=== PATIENT | female | born 1930 | race Caucasian/White ===

== ENCOUNTER 2021-04-21 14:59 | Inpatient (IN) ==
[2021-04-22] MEDS ORDERED: Fluticasone Propionate Nasal 50 MCG/SPRAY BOTTLE NS PRN (12:05)
[2021-04-23 05:15] LABS: Basophils % 0.2 %; Eosinophils % 0.2 %; Hematocrit 30.5 % (35.3-44.9); Hemoglobin 9.9 g/dL (11.5-15.4); Immature Granulocytes % 0.7 % (0-4); Lymphocytes # 3.8 K/mcL (0.6-4.6); Lymphocytes % 31.8 %; Mean Corpuscular HGB Conc 32.5 g/dL (31.6-35.5); Mean Corpuscular Hemoglobin 30.4 pg (28.0-33.3); Mean Corpuscular Volume 93.6 fL (83.0-100.0); Mean Platelet Volume 8.8 fL (9.4-12.4); Monocytes # 1.1 K/mcL (0.0-1.3); Monocytes % 9.1 %; Neutrophils # 6.9 K/mcL (1.6-8.9); Platelet Count 371 K/mcL (140-400); Red Blood Count 3.26 M/mcL (3.82-4.97); Red Cell Distribution Width 14.4 % (11.5-14.5); White Blood Count 11.9 K/mcL (4.3-11.1)
[2021-04-23 05:30] LABS: BUN/Creatinine Ratio 35 (6-26); Blood Urea Nitrogen 36 mg/dL (8-23); Calcium 8.8 mg/dL (8.6-10.3); Carbon Dioxide 28 mEq/L (23-29); Chloride 97 mEq/L (98-107); Glucose 96 mg/dL (70-105); Osmolality,Calculated 280 (280-300); Potassium 4.2 mEq/L (3.5-5.1); Sodium 131 mEq/L (136-145); eGFR For African Americans > 60 (> 60); eGFR For Non-African Americans 51 (> 60)
[2021-04-23 05:42] LABS: Magnesium 2.1 mg/dL (1.6-2.6)
[2021-04-23 06:49] VITALS: BP 146/74
[2021-04-23] MEDS ORDERED: *HR* Enoxaparin 40 MG/0.4 ML SYRINGE SQ SCH (07:00)
[2021-04-23 08:22] LABS: Ferritin 46 ng/mL (10-120)
[2021-04-23] MEDS ORDERED: predniSONE 20 MG TABLET PO SCH (09:00)
[2021-04-23] MEDS ORDERED: amLODIPine 5 MG TABLET PO SCH (09:00)
[2021-04-23] MEDS ORDERED: Furosemide 20 MG TABLET PO SCH (09:00)
[2021-04-23] MEDS ORDERED: Isosorbide MONOnitrate (24 HR) 30 MG TAB.ER.24H PO SCH (09:00)
[2021-04-23] MEDS ORDERED: Azithromycin 250 MG TABLET PO SCH (09:00)
[2021-04-23] MEDS ORDERED: lisinopriL 10 MG TABLET PO SCH (09:00)
[2021-04-23 09:05] LABS: C-Reactive Protein < 5 mg/L (Less than 10)
== END 2021-04-23 07:28 | disposition short-term general hospital (02) | DRG 310 ==
LOC: INPGRE 04-22 14:41
PROVIDERS: ADMIT Family Medicine; ATTEND Family Medicine

== ENCOUNTER 2021-04-28 11:53 | Inpatient (IN) ==
[2021-04-28] MEDS ORDERED: Fluticasone Propionate Nasal 50 MCG/SPRAY BOTTLE NS PRN (17:40)
[2021-04-29] MEDS: Acetaminophen 325 MG TABLET PO PRN ×2 (02:30→20:25)
[2021-04-29] MEDS: *HR* Enoxaparin 40 MG/0.4 ML SYRINGE SQ SCH (04:55)
[2021-04-29 06:20] LABS: Basophils % 0.2 %; Eosinophils # 0.1 K/mcL (0.0-0.6); Eosinophils % 0.5 %; Hematocrit 30.1 % (35.3-44.9); Immature Granulocytes % 0.9 % (0-4); Lymphocytes # 4.6 K/mcL (0.6-4.6); Lymphocytes % 35.8 %; Mean Corpuscular HGB Conc 33.2 g/dL (31.6-35.5); Mean Corpuscular Hemoglobin 30.9 pg (28.0-33.3); Mean Corpuscular Volume 92.9 fL (83.0-100.0); Mean Platelet Volume 8.7 fL (9.4-12.4); Monocytes # 1.2 K/mcL (0.0-1.3); Monocytes % 9.4 %; Neutrophils # 6.9 K/mcL (1.6-8.9); Platelet Count 297 K/mcL (140-400); Red Blood Count 3.24 M/mcL (3.82-4.97); Red Cell Distribution Width 14.4 % (11.5-14.5); Segmented Neutrophils % 53.2 %; White Blood Count 12.9 K/mcL (4.3-11.1)
[2021-04-29 06:44] LABS: Albumin 3.4 g/dL (3.5-5.7); Albumin/Globulin Ratio 1.4 (1.1-2.2); Bilirubin,Total 0.4 mg/dL (0.3-1.0); Calcium 8.7 mg/dL (8.6-10.3); Globulin 2.5 g/dL (2.4-3.5); Magnesium 2.1 mg/dL (1.6-2.6); Potassium 4.1 mEq/L (3.5-5.1); Total Protein 5.9 g/dL (6.4-8.9)
[2021-04-29] MEDS: predniSONE 20 MG TABLET PO SCH (08:59)
[2021-04-29] MEDS: Isosorbide MONOnitrate (24 HR) 30 MG TAB.ER.24H PO SCH (08:59)
[2021-04-29] MEDS: amLODIPine 5 MG TABLET PO SCH (08:59)
[2021-04-29] MEDS: Furosemide 20 MG TABLET PO SCH (08:59)
[2021-04-29] MEDS: lisinopriL 10 MG TABLET PO SCH (08:59)
[2021-04-30] MEDS: *HR* Enoxaparin 40 MG/0.4 ML SYRINGE SQ SCH (05:22)
[2021-04-30] MEDS: Budesonide/Formoterol 160/4.5 1 PUFF INH IH SCH ×2 (08:05→20:37)
[2021-04-30] MEDS: Isosorbide MONOnitrate (24 HR) 30 MG TAB.ER.24H PO SCH (09:29)
[2021-04-30] MEDS: amLODIPine 5 MG TABLET PO SCH (09:29)
[2021-04-30] MEDS: lisinopriL 10 MG TABLET PO SCH (09:29)
[2021-04-30] MEDS: Furosemide 20 MG TABLET PO SCH (09:29)
[2021-04-30] MEDS: predniSONE 20 MG TABLET PO SCH (09:29)
[2021-04-30] MEDS: Acetaminophen 325 MG TABLET PO PRN (21:19)
[2021-05-01] MEDS: *HR* Enoxaparin 40 MG/0.4 ML SYRINGE SQ SCH (04:51)
[2021-05-01] MEDS: Budesonide/Formoterol 160/4.5 1 PUFF INH IH SCH ×2 (06:59→19:56)
[2021-05-01] MEDS: Furosemide 20 MG TABLET PO SCH (09:46)
[2021-05-01] MEDS: lisinopriL 10 MG TABLET PO SCH (09:46)
[2021-05-01] MEDS: amLODIPine 5 MG TABLET PO SCH (09:46)
[2021-05-01] MEDS: Isosorbide MONOnitrate (24 HR) 30 MG TAB.ER.24H PO SCH (09:46)
[2021-05-01] MEDS: Acetaminophen 325 MG TABLET PO PRN (22:00)
[2021-05-02] MEDS: Acetaminophen 325 MG TABLET PO PRN ×3 (06:03→21:46)
[2021-05-02] MEDS: *HR* Enoxaparin 40 MG/0.4 ML SYRINGE SQ SCH (06:03)
[2021-05-02] MEDS: Isosorbide MONOnitrate (24 HR) 30 MG TAB.ER.24H PO SCH (08:19)
[2021-05-02] MEDS: Furosemide 20 MG TABLET PO SCH (08:19)
[2021-05-02] MEDS: amLODIPine 5 MG TABLET PO SCH (08:19)
[2021-05-02] MEDS: lisinopriL 10 MG TABLET PO SCH (08:19)
[2021-05-02] MEDS: Budesonide/Formoterol 160/4.5 1 PUFF INH IH SCH ×2 (11:57→20:12)
[2021-05-03] MEDS: *HR* Enoxaparin 40 MG/0.4 ML SYRINGE SQ SCH (04:55)
[2021-05-03] MEDS: Acetaminophen 325 MG TABLET PO PRN ×2 (04:55→22:05)
[2021-05-03] MEDS: Isosorbide MONOnitrate (24 HR) 30 MG TAB.ER.24H PO SCH (08:46)
[2021-05-03] MEDS: amLODIPine 5 MG TABLET PO SCH (08:46)
[2021-05-03] MEDS: lisinopriL 10 MG TABLET PO SCH (08:46)
[2021-05-03] MEDS: Furosemide 20 MG TABLET PO SCH (08:46)
[2021-05-03] MEDS: Budesonide/Formoterol 160/4.5 1 PUFF INH IH SCH ×2 (08:53→20:11)
[2021-05-04 04:34] LABS: Hematocrit 30.5 % (35.3-44.9); Hemoglobin 9.9 g/dL (11.5-15.4); Mean Corpuscular HGB Conc 32.5 g/dL (31.6-35.5); Mean Corpuscular Hemoglobin 30.7 pg (28.0-33.3); Mean Corpuscular Volume 94.7 fL (83.0-100.0); Mean Platelet Volume 8.5 fL (9.4-12.4); Platelet Count 263 K/mcL (140-400); Red Blood Count 3.22 M/mcL (3.82-4.97); Red Cell Distribution Width 14.6 % (11.5-14.5); White Blood Count 8.9 K/mcL (4.3-11.1)
[2021-05-04] MEDS: *HR* Enoxaparin 40 MG/0.4 ML SYRINGE SQ SCH (04:46)
[2021-05-04 04:53] LABS: Albumin 3.2 g/dL (3.5-5.7); Albumin/Globulin Ratio 1.4 (1.1-2.2); Bilirubin,Total 0.4 mg/dL (0.3-1.0); Calcium 8.7 mg/dL (8.6-10.3); Globulin 2.3 g/dL (2.4-3.5); Potassium 4.7 mEq/L (3.5-5.1); Total Protein 5.5 g/dL (6.4-8.9)
[2021-05-04] MEDS: Budesonide/Formoterol 160/4.5 1 PUFF INH IH SCH ×2 (07:18→20:26)
[2021-05-04] MEDS: amLODIPine 5 MG TABLET PO SCH (08:48)
[2021-05-04] MEDS: lisinopriL 10 MG TABLET PO SCH (08:48)
[2021-05-04] MEDS: Isosorbide MONOnitrate (24 HR) 30 MG TAB.ER.24H PO SCH (08:48)
[2021-05-04] MEDS: Furosemide 20 MG TABLET PO SCH (08:48)
[2021-05-04] MEDS: Acetaminophen 325 MG TABLET PO PRN (21:46)
[2021-05-05] MEDS ORDERED: Psyllium 1 PACKET POWD.PACK PO PRN (02:24)
[2021-05-05] MEDS: *HR* Enoxaparin 40 MG/0.4 ML SYRINGE SQ SCH (05:42)
[2021-05-05] MEDS: Isosorbide MONOnitrate (24 HR) 30 MG TAB.ER.24H PO SCH (07:52)
[2021-05-05] MEDS: Furosemide 20 MG TABLET PO SCH (07:52)
[2021-05-05] MEDS: amLODIPine 5 MG TABLET PO SCH (07:52)
[2021-05-05] MEDS: lisinopriL 10 MG TABLET PO SCH (07:53)
[2021-05-05] MEDS: Budesonide/Formoterol 160/4.5 1 PUFF INH IH SCH ×2 (10:05→19:14)
[2021-05-05] MEDS: Acetaminophen 325 MG TABLET PO PRN (22:33)
[2021-05-06] MEDS: *HR* Enoxaparin 40 MG/0.4 ML SYRINGE SQ SCH (05:55)
[2021-05-06] MEDS: Budesonide/Formoterol 160/4.5 1 PUFF INH IH SCH ×2 (08:11→20:58)
[2021-05-06] MEDS: lisinopriL 10 MG TABLET PO SCH (08:19)
[2021-05-06] MEDS: amLODIPine 5 MG TABLET PO SCH (08:19)
[2021-05-06] MEDS: Isosorbide MONOnitrate (24 HR) 30 MG TAB.ER.24H PO SCH (08:19)
[2021-05-06] MEDS: Furosemide 20 MG TABLET PO SCH (09:52)
[2021-05-06] MEDS: Acetaminophen 325 MG TABLET PO PRN (21:13)
[2021-05-07] MEDS: *HR* Enoxaparin 40 MG/0.4 ML SYRINGE SQ SCH (05:19)
[2021-05-07] MEDS: Furosemide 20 MG TABLET PO SCH (08:44)
[2021-05-07] MEDS: Isosorbide MONOnitrate (24 HR) 30 MG TAB.ER.24H PO SCH (08:44)
[2021-05-07] MEDS: lisinopriL 10 MG TABLET PO SCH (08:45)
[2021-05-07] MEDS: amLODIPine 5 MG TABLET PO SCH (08:45)
[2021-05-07] MEDS: Budesonide/Formoterol 160/4.5 1 PUFF INH IH SCH ×2 (09:08→21:07)
[2021-05-07] MEDS: Acetaminophen 325 MG TABLET PO PRN (20:32)
[2021-05-08] MEDS: *HR* Enoxaparin 40 MG/0.4 ML SYRINGE SQ SCH (05:07)
[2021-05-08] MEDS: Acetaminophen 325 MG TABLET PO PRN (05:08)
[2021-05-08 06:43] VITALS: BP 114/66
[2021-05-08] MEDS: amLODIPine 5 MG TABLET PO SCH (08:16)
[2021-05-08] MEDS: lisinopriL 10 MG TABLET PO SCH (08:16)
[2021-05-08] MEDS: Furosemide 20 MG TABLET PO SCH (08:16)
[2021-05-08] MEDS: Isosorbide MONOnitrate (24 HR) 30 MG TAB.ER.24H PO SCH (08:16)
[2021-05-08] MEDS: Budesonide/Formoterol 160/4.5 1 PUFF INH IH SCH (10:12)
== END 2021-05-08 15:02 | disposition home health service (06) | DRG 178 ==
LOC: INPGRE 15:32
PROVIDERS: ADMIT Family Medicine; ATTEND Family Medicine

== ENCOUNTER 2021-07-29 15:59 | Inpatient (IN) ==
[2021-07-29] MEDS: Budesonide/Formoterol 160/4.5 1 PUFF INH IH SCH (21:15)
[2021-07-29] MEDS: Acetaminophen 325 MG TABLET PO PRN (21:40)
[2021-07-30 06:05] LABS: Basophils # 0.1 K/mcL (0.0-0.2); Basophils % 0.9 %; Eosinophils # 0.4 K/mcL (0.0-0.6); Eosinophils % 4.7 %; Hematocrit 28.1 % (35.3-44.9); Hemoglobin 9.2 g/dL (11.5-15.4); Lymphocytes # 2.1 K/mcL (0.6-4.6); Lymphocytes % 25.5 %; Mean Corpuscular HGB Conc 32.7 g/dL (31.6-35.5); Mean Corpuscular Hemoglobin 29.7 pg (28.0-33.3); Mean Corpuscular Volume 90.6 fL (83.0-100.0); Mean Platelet Volume 9.1 fL (9.4-12.4); Monocytes # 0.6 K/mcL (0.0-1.3); Monocytes % 7.6 %; Neutrophils # 4.9 K/mcL (1.6-8.9); Platelet Count 282 K/mcL (140-400); Red Cell Distribution Width 15.4 % (11.5-14.5); Segmented Neutrophils % 60.3 %; White Blood Count 8.1 K/mcL (4.3-11.1)
[2021-07-30 06:40] LABS: BUN/Creatinine Ratio 16 (6-26); Blood Urea Nitrogen 15 mg/dL (8-23); Calcium 8.5 mg/dL (8.6-10.3); Carbon Dioxide 26 mEq/L (23-29); Chloride 99 mEq/L (98-107); Glucose 91 mg/dL (70-105); Osmolality,Calculated 270 (280-300); Potassium 4.7 mEq/L (3.5-5.1); Sodium 130 mEq/L (136-145); eGFR For African Americans > 60 (> 60); eGFR For Non-African Americans 57 (> 60)
[2021-07-30] MEDS: Isosorbide MONOnitrate (24 HR) 30 MG TAB.ER.24H PO SCH (08:14)
[2021-07-30] MEDS: lisinopriL 10 MG TABLET PO SCH (08:14)
[2021-07-30] MEDS: Aspirin Enteric Coated 81 MG Tablet PO SCH (08:14)
[2021-07-30] MEDS: amLODIPine 5 MG TABLET PO SCH (08:14)
[2021-07-30] MEDS: *HR* Enoxaparin 40 MG/0.4 ML SYRINGE SQ SCH (08:15)
[2021-07-30] MEDS: Budesonide/Formoterol 160/4.5 1 PUFF INH IH SCH ×2 (09:40→19:45)
[2021-07-30] MEDS ORDERED: Lactulose Oral Soln 20 GM/30 ML UDC PO PRN (18:38)
[2021-07-30] MEDS ORDERED: Bisacodyl 10 MG RECTAL SUPPOSITORY RC PRN (18:38)
[2021-07-30] MEDS: Acetaminophen 325 MG TABLET PO PRN (20:59)
[2021-07-30] MEDS: polyethylene glycoL 3350 17 GM POWD.PACK PO SCH (20:59)
[2021-07-30] MEDS: Melatonin 3 MG TABLET PO PRN (20:59)
[2021-07-30] MEDS ORDERED: Sennosides/Docusate Sodium TABLET PO SCH (21:00)
[2021-07-31] MEDS: Acetaminophen 325 MG TABLET PO PRN ×2 (07:09→20:12)
[2021-07-31] MEDS: *HR* Enoxaparin 40 MG/0.4 ML SYRINGE SQ SCH (07:11)
[2021-07-31] MEDS: polyethylene glycoL 3350 17 GM POWD.PACK PO SCH (08:26)
[2021-07-31] MEDS: Aspirin Enteric Coated 81 MG Tablet PO SCH (08:27)
[2021-07-31] MEDS: amLODIPine 5 MG TABLET PO SCH (08:27)
[2021-07-31] MEDS: Isosorbide MONOnitrate (24 HR) 30 MG TAB.ER.24H PO SCH (08:27)
[2021-07-31] MEDS: lisinopriL 10 MG TABLET PO SCH (08:27)
[2021-07-31] MEDS: Budesonide/Formoterol 160/4.5 1 PUFF INH IH SCH ×2 (09:58→20:19)
[2021-07-31] MEDS: Melatonin 3 MG TABLET PO PRN (20:12)
[2021-08-01] MEDS: *HR* Enoxaparin 40 MG/0.4 ML SYRINGE SQ SCH (05:37)
[2021-08-01 06:00] LABS: Basophils % 0.5 %; Eosinophils # 0.4 K/mcL (0.0-0.6); Eosinophils % 4.9 %; Hemoglobin 9.1 g/dL (11.5-15.4); Immature Granulocytes % 0.9 % (0-4); Lymphocytes % 25.8 %; Mean Corpuscular HGB Conc 32.5 g/dL (31.6-35.5); Mean Corpuscular Hemoglobin 30.2 pg (28.0-33.3); Mean Platelet Volume 9.1 fL (9.4-12.4); Monocytes # 0.8 K/mcL (0.0-1.3); Monocytes % 10.7 %; Neutrophils # 4.3 K/mcL (1.6-8.9); Platelet Count 324 K/mcL (140-400); Red Blood Count 3.01 M/mcL (3.82-4.97); Red Cell Distribution Width 15.7 % (11.5-14.5); Segmented Neutrophils % 57.2 %; White Blood Count 7.6 K/mcL (4.3-11.1)
[2021-08-01 06:24] LABS: BUN/Creatinine Ratio 18 (6-26); Blood Urea Nitrogen 18 mg/dL (8-23); Calcium 8.6 mg/dL (8.6-10.3); Carbon Dioxide 26 mEq/L (23-29); Chloride 100 mEq/L (98-107); Glucose 86 mg/dL (70-105); Osmolality,Calculated 273 (280-300); Potassium 4.8 mEq/L (3.5-5.1); Sodium 131 mEq/L (136-145); eGFR For African Americans > 60 (> 60); eGFR For Non-African Americans 52 (> 60)
[2021-08-01] MEDS: Aspirin Enteric Coated 81 MG Tablet PO SCH (08:26)
[2021-08-01] MEDS: polyethylene glycoL 3350 17 GM POWD.PACK PO SCH ×2 (08:26→20:01)
[2021-08-01] MEDS: amLODIPine 5 MG TABLET PO SCH (08:27)
[2021-08-01] MEDS: Isosorbide MONOnitrate (24 HR) 30 MG TAB.ER.24H PO SCH (08:27)
[2021-08-01] MEDS: lisinopriL 10 MG TABLET PO SCH (08:27)
[2021-08-01] MEDS: Budesonide/Formoterol 160/4.5 1 PUFF INH IH SCH ×2 (11:14→20:00)
[2021-08-01] MEDS: Melatonin 3 MG TABLET PO PRN (20:01)
[2021-08-01] MEDS: Acetaminophen 325 MG TABLET PO PRN (20:01)
[2021-08-02] MEDS: *HR* Enoxaparin 40 MG/0.4 ML SYRINGE SQ SCH (05:03)
[2021-08-02] MEDS: Isosorbide MONOnitrate (24 HR) 30 MG TAB.ER.24H PO SCH (07:51)
[2021-08-02] MEDS: lisinopriL 10 MG TABLET PO SCH (07:51)
[2021-08-02] MEDS: polyethylene glycoL 3350 17 GM POWD.PACK PO SCH ×2 (07:52→20:26)
[2021-08-02] MEDS: amLODIPine 5 MG TABLET PO SCH (07:52)
[2021-08-02] MEDS: Aspirin Enteric Coated 81 MG Tablet PO SCH (07:52)
[2021-08-02] MEDS: Budesonide/Formoterol 160/4.5 1 PUFF INH IH SCH ×2 (10:28→19:44)
[2021-08-02] MEDS: Acetaminophen 325 MG TABLET PO PRN (20:26)
[2021-08-02] MEDS: Melatonin 3 MG TABLET PO PRN (20:26)
[2021-08-02 21:38] LABS: Adenovirus Not Detected (Not Detect); Bordetella Pertussis Not Detected (Not Detect); Chlamydophila pneumoniae Not Detected (Not Detect); Coronavirus 229E Not Detected (Not Detect); Coronavirus HKU1 Not Detected (Not Detect); Coronavirus NL63 Not Detected (Not Detect); Coronavirus OC43 Not Detected (Not Detect); Human Metapneumovirus Not Detected (Not Detect); Human Rhinovirus/Enterovirus Not Detected (Not Detect); Influenza A Subtype 2009 H1 Not Detected (Not Detect); Influenza B Not Detected (Not Detect); Mycoplasma pneumoniae Not Detected (Not Detect); Parainfluenza Virus 1 Not Detected (Not Detect); Parainfluenza Virus 2 Not Detected (Not Detect); Parainfluenza Virus 3 Not Detected (Not Detect); Parainfluenza Virus 4 Not Detected (Not Detect); Respiratory Syncytial Virus Not Detected (Not Detect); SARS-CoV-2 Not Detected (Not Detect)
[2021-08-03 04:52] LABS: Basophils # 0.1 K/mcL (0.0-0.2); Basophils % 0.8 %; Eosinophils # 0.3 K/mcL (0.0-0.6); Eosinophils % 4.5 %; Hematocrit 26.5 % (35.3-44.9); Hemoglobin 8.7 g/dL (11.5-15.4); Immature Granulocytes % 0.6 % (0-4); Lymphocytes # 2.3 K/mcL (0.6-4.6); Mean Corpuscular HGB Conc 32.8 g/dL (31.6-35.5); Mean Corpuscular Hemoglobin 30.6 pg (28.0-33.3); Mean Corpuscular Volume 93.3 fL (83.0-100.0); Mean Platelet Volume 8.9 fL (9.4-12.4); Monocytes # 0.8 K/mcL (0.0-1.3); Monocytes % 12.1 %; Platelet Count 328 K/mcL (140-400); Red Blood Count 2.84 M/mcL (3.82-4.97); Red Cell Distribution Width 15.9 % (11.5-14.5); White Blood Count 6.4 K/mcL (4.3-11.1)
[2021-08-03] MEDS: *HR* Enoxaparin 40 MG/0.4 ML SYRINGE SQ SCH (04:58)
[2021-08-03 05:03] LABS: BUN/Creatinine Ratio 22 (6-26); Blood Urea Nitrogen 23 mg/dL (8-23); Calcium 8.3 mg/dL (8.6-10.3); Carbon Dioxide 27 mEq/L (23-29); Chloride 99 mEq/L (98-107); Glucose 94 mg/dL (70-105); Osmolality,Calculated 275 (280-300); Potassium 4.8 mEq/L (3.5-5.1); Sodium 131 mEq/L (136-145); eGFR For African Americans > 60 (> 60); eGFR For Non-African Americans 50 (> 60)
[2021-08-03] MEDS: Aspirin Enteric Coated 81 MG Tablet PO SCH (08:14)
[2021-08-03] MEDS: Isosorbide MONOnitrate (24 HR) 30 MG TAB.ER.24H PO SCH (08:14)
[2021-08-03] MEDS: amLODIPine 5 MG TABLET PO SCH (08:14)
[2021-08-03] MEDS: lisinopriL 10 MG TABLET PO SCH (08:14)
[2021-08-03] MEDS: polyethylene glycoL 3350 17 GM POWD.PACK PO SCH (08:15)
[2021-08-03] MEDS: Budesonide/Formoterol 160/4.5 1 PUFF INH IH SCH ×2 (09:48→19:50)
[2021-08-03 19:38] VITALS: BP 144/67; PULSE 47; RESP 18; TEMP 98.3
[2021-08-03 19:52] VITALS: O2SAT 98
== END 2021-08-03 20:04 | disposition other institution (70) | DRG 945 ==
LOC: INPGRE 17:49
PROVIDERS: ADMIT Family Medicine; ATTEND Family Medicine

== ENCOUNTER 2021-08-06 13:57 | Inpatient (IN) ==
[2021-08-06] MEDS ORDERED: Furosemide 20 MG TABLET PO PRN (22:34)
[2021-08-06] MEDS ORDERED: Melatonin 3 MG TABLET PO PRN (22:34)
[2021-08-07 05:44] LABS: Basophils # 0.1 K/mcL (0.0-0.2); Eosinophils # 0.3 K/mcL (0.0-0.6); Eosinophils % 5.1 %; Hematocrit 28.3 % (35.3-44.9); Hemoglobin 9.1 g/dL (11.5-15.4); Immature Granulocytes % 0.3 % (0-4); Lymphocytes # 2.2 K/mcL (0.6-4.6); Lymphocytes % 38.6 %; Mean Corpuscular HGB Conc 32.2 g/dL (31.6-35.5); Mean Corpuscular Hemoglobin 29.8 pg (28.0-33.3); Mean Corpuscular Volume 92.8 fL (83.0-100.0); Mean Platelet Volume 8.9 fL (9.4-12.4); Monocytes # 0.7 K/mcL (0.0-1.3); Monocytes % 11.7 %; Neutrophils # 2.5 K/mcL (1.6-8.9); Platelet Count 350 K/mcL (140-400); Red Blood Count 3.05 M/mcL (3.82-4.97); Red Cell Distribution Width 15.6 % (11.5-14.5); Segmented Neutrophils % 43.3 %; White Blood Count 5.7 K/mcL (4.3-11.1)
[2021-08-07 06:04] LABS: BUN/Creatinine Ratio 25 (6-26); Blood Urea Nitrogen 23 mg/dL (8-23); Calcium 8.6 mg/dL (8.6-10.3); Carbon Dioxide 27 mEq/L (23-29); Chloride 99 mEq/L (98-107); Glucose 91 mg/dL (70-105); Osmolality,Calculated 277 (280-300); Potassium 4.2 mEq/L (3.5-5.1); Sodium 132 mEq/L (136-145); eGFR For African Americans > 60 (> 60); eGFR For Non-African Americans 58 (> 60)
[2021-08-07] MEDS: *HR* Enoxaparin 40 MG/0.4 ML SYRINGE SQ SCH (07:36)
[2021-08-07] MEDS: Aspirin Enteric Coated 81 MG Tablet PO SCH (07:36)
[2021-08-07] MEDS: Isosorbide MONOnitrate (24 HR) 30 MG TAB.ER.24H PO SCH (07:36)
[2021-08-07] MEDS: Multivit/Ca/Min/Fe/FA 1 TAB TABLET PO SCH (07:36)
[2021-08-07] MEDS: lisinopriL 10 MG TABLET PO SCH (07:37)
[2021-08-07] MEDS: Budesonide/Formoterol 160/4.5 1 PUFF INH IH SCH ×2 (10:08→20:10)
[2021-08-08] MEDS: *HR* Enoxaparin 40 MG/0.4 ML SYRINGE SQ SCH (05:06)
[2021-08-08] MEDS: Multivit/Ca/Min/Fe/FA 1 TAB TABLET PO SCH (07:47)
[2021-08-08] MEDS: Aspirin Enteric Coated 81 MG Tablet PO SCH (07:47)
[2021-08-08] MEDS: Isosorbide MONOnitrate (24 HR) 30 MG TAB.ER.24H PO SCH (07:47)
[2021-08-08] MEDS: lisinopriL 10 MG TABLET PO SCH (07:47)
[2021-08-08] MEDS: Budesonide/Formoterol 160/4.5 1 PUFF INH IH SCH ×2 (09:55→19:52)
[2021-08-09] MEDS: *HR* Enoxaparin 40 MG/0.4 ML SYRINGE SQ SCH (05:44)
[2021-08-09 07:30] LABS: Hematocrit 29.1 % (35.3-44.9); Hemoglobin 9.4 g/dL (11.5-15.4); Mean Corpuscular HGB Conc 32.3 g/dL (31.6-35.5); Platelet Count 363 K/mcL (140-400); Red Blood Count 3.13 M/mcL (3.82-4.97); Red Cell Distribution Width 15.5 % (11.5-14.5); White Blood Count 5.2 K/mcL (4.3-11.1)
[2021-08-09] MEDS: Budesonide/Formoterol 160/4.5 1 PUFF INH IH SCH ×2 (07:45→20:12)
[2021-08-09 07:57] LABS: Alanine Aminotransferase 10 Units/L (7-52); Albumin 3.2 g/dL (3.5-5.7); Albumin/Globulin Ratio 1.2 (1.1-2.2); Alkaline Phosphatase 42 Units/L (34-104); Aspartate Amino Transferase 16 Units/L (13-39); BUN/Creatinine Ratio 23 (6-26); Bilirubin,Total 0.3 mg/dL (0.3-1.0); Blood Urea Nitrogen 18 mg/dL (8-23); Calcium 8.5 mg/dL (8.6-10.3); Carbon Dioxide 28 mEq/L (23-29); Chloride 98 mEq/L (98-107); Globulin 2.6 g/dL (2.4-3.5); Glucose 85 mg/dL (70-105); Osmolality,Calculated 273 (280-300); Potassium 4.4 mEq/L (3.5-5.1); Sodium 131 mEq/L (136-145); Total Protein 5.8 g/dL (6.4-8.9); eGFR For African Americans > 60 (> 60); eGFR For Non-African Americans > 60 (> 60)
[2021-08-09] MEDS: polyethylene glycoL 3350 17 GM POWD.PACK PO SCH (08:10)
[2021-08-09] MEDS: Multivit/Ca/Min/Fe/FA 1 TAB TABLET PO SCH (08:12)
[2021-08-09] MEDS: Aspirin Enteric Coated 81 MG Tablet PO SCH (08:12)
[2021-08-09] MEDS: Isosorbide MONOnitrate (24 HR) 30 MG TAB.ER.24H PO SCH (08:12)
[2021-08-09] MEDS: lisinopriL 10 MG TABLET PO SCH (08:12)
[2021-08-09] MEDS ORDERED: Sennosides/Docusate Sodium TABLET PO PRN (15:00)
[2021-08-10] MEDS: *HR* Enoxaparin 40 MG/0.4 ML SYRINGE SQ SCH (05:12)
[2021-08-10] MEDS: polyethylene glycoL 3350 17 GM POWD.PACK PO SCH (08:14)
[2021-08-10] MEDS: lisinopriL 10 MG TABLET PO SCH (08:14)
[2021-08-10] MEDS: Multivit/Ca/Min/Fe/FA 1 TAB TABLET PO SCH (08:14)
[2021-08-10] MEDS: Isosorbide MONOnitrate (24 HR) 30 MG TAB.ER.24H PO SCH (08:14)
[2021-08-10] MEDS: Aspirin Enteric Coated 81 MG Tablet PO SCH (08:14)
[2021-08-10] MEDS: Budesonide/Formoterol 160/4.5 1 PUFF INH IH SCH ×2 (10:00→21:08)
[2021-08-11] MEDS: Multivit/Ca/Min/Fe/FA 1 TAB TABLET PO SCH (09:01)
[2021-08-11] MEDS: Aspirin Enteric Coated 81 MG Tablet PO SCH (09:01)
[2021-08-11] MEDS: *HR* Enoxaparin 40 MG/0.4 ML SYRINGE SQ SCH (09:03)
[2021-08-11] MEDS: Isosorbide MONOnitrate (24 HR) 30 MG TAB.ER.24H PO SCH (09:04)
[2021-08-11] MEDS: lisinopriL 10 MG TABLET PO SCH (09:05)
[2021-08-11] MEDS: polyethylene glycoL 3350 17 GM POWD.PACK PO SCH (09:05)
[2021-08-11] MEDS: Budesonide/Formoterol 160/4.5 1 PUFF INH IH SCH ×2 (10:15→20:39)
[2021-08-12] MEDS: *HR* Enoxaparin 40 MG/0.4 ML SYRINGE SQ SCH (05:52)
[2021-08-12 07:40] VITALS: BP 127/72; PULSE 63; TEMP 98
[2021-08-12] MEDS: polyethylene glycoL 3350 17 GM POWD.PACK PO SCH (07:49)
[2021-08-12] MEDS: Multivit/Ca/Min/Fe/FA 1 TAB TABLET PO SCH (07:49)
[2021-08-12] MEDS: Isosorbide MONOnitrate (24 HR) 30 MG TAB.ER.24H PO SCH (07:49)
[2021-08-12] MEDS: Aspirin Enteric Coated 81 MG Tablet PO SCH (07:49)
[2021-08-12] MEDS: lisinopriL 10 MG TABLET PO SCH (07:49)
[2021-08-12] MEDS: Budesonide/Formoterol 160/4.5 1 PUFF INH IH SCH (11:00)
[2021-08-12 11:04] VITALS: RESP 20; O2SAT 98
== END 2021-08-12 13:15 | disposition home health service (06) | DRG 945 ==
LOC: INPGRE 21:35
PROVIDERS: ADMIT Family Medicine; ATTEND Family Medicine

== ENCOUNTER 2022-04-05 13:20 | Inpatient (IN) ==
[2022-04-05 14:03] LABS: Basophils # 0.1 K/mcL (0.0-0.2); Basophils % 0.5 %; Eosinophils # 0.1 K/mcL (0.0-0.6); Eosinophils % 0.8 %; Hematocrit 32.8 % (35.3-44.9); Hemoglobin 11.3 g/dL (11.5-15.4); Lymphocytes # 1.8 K/mcL (0.6-4.6); Lymphocytes % 14.3 %; Mean Corpuscular HGB Conc 34.5 g/dL (31.6-35.5); Mean Corpuscular Hemoglobin 28.8 pg (28.0-33.3); Mean Corpuscular Volume 83.5 fL (83.0-100.0); Mean Platelet Volume 8.5 fL (9.4-12.4); Monocytes # 1.5 K/mcL (0.0-1.3); Platelet Count 489 K/mcL (140-400); Red Blood Count 3.93 M/mcL (3.82-4.97); Red Cell Distribution Width 15.1 % (11.5-14.5); Segmented Neutrophils % 71.4 %; White Blood Count 12.6 K/mcL (4.3-11.1)
[2022-04-05 14:19] LABS: Alanine Aminotransferase 162 Units/L (7-52); Albumin 3.4 g/dL (3.5-5.7); Albumin/Globulin Ratio 1.3 (1.1-2.2); Alkaline Phosphatase 304 Units/L (34-104); Aspartate Amino Transferase 94 Units/L (13-39); BUN/Creatinine Ratio 28 (6-26); Bilirubin,Total 0.5 mg/dL (0.3-1.0); Blood Urea Nitrogen 26 mg/dL (8-23); Calcium 9.4 mg/dL (8.6-10.3); Carbon Dioxide 27 mEq/L (23-29); Chloride 88 mEq/L (98-107); Globulin 2.7 g/dL (2.4-3.5); Glucose 117 mg/dL (70-105); Magnesium 1.9 mg/dL (1.6-2.6); Osmolality,Calculated 262 (280-300); Potassium 4.3 mEq/L (3.5-5.1); Sodium 123 mEq/L (136-145); Total Protein 6.1 g/dL (6.4-8.9); eGFR For African Americans > 60 (> 60); eGFR For Non-African Americans 56 (> 60)
[2022-04-05] MEDS ORDERED: 0.9 % Sodium Chloride 1,000 ML IVC ONE (14:30)
[2022-04-05 14:39] LABS: Bilirubin,Urine Small (Negative); Blood,Urine Small (Negative); Clarity,Urine Cloudy (Clear); Color,Urine Yellow (Yellow); Glucose,Urine (UA) Normal (Normal); Ketones,Urine Trace mg/dL (Negative); Leukocyte Esterase,Urine Small (Negative); Nitrite,Urine Negative (Negative); Protein,Urine >=300 mg/dL (Neg-Trace); Specific Gravity,Urine 1.025 (1.010-1.025); Urobilinogen,Urine Normal (Normal)
[2022-04-05 14:47] LABS: WBC,Urine TNTC per hpf (0-3)
[2022-04-05] MEDS ORDERED: cefTRIAXone 1,000 MG in 0.9 % Sodium Chloride Mini Bag 100 ML IVPB ONE (16:10)
[2022-04-05] MEDS ORDERED: Naloxone 0.4 MG/ML INJ IVP PRN (16:13)
[2022-04-05] MEDS: 0.9 % Sodium Chloride 1,000 ML IVC SCH (17:58)
[2022-04-05] MEDS: Budesonide/Formoterol 160/4.5 1 PUFF INH IH SCH (20:54)
[2022-04-05] MEDS: Melatonin 3 MG TABLET PO PRN (21:25)
[2022-04-06] MEDS: 0.9 % Sodium Chloride 1,000 ML IVC SCH (02:19)
[2022-04-06 05:39] LABS: Basophils # 0.1 K/mcL (0.0-0.2); Basophils % 0.6 %; Eosinophils # 0.2 K/mcL (0.0-0.6); Eosinophils % 2.5 %; Hematocrit 27.9 % (35.3-44.9); Hemoglobin 9.5 g/dL (11.5-15.4); Lymphocytes # 1.8 K/mcL (0.6-4.6); Lymphocytes % 18.1 %; Mean Corpuscular HGB Conc 34.1 g/dL (31.6-35.5); Mean Corpuscular Hemoglobin 29.1 pg (28.0-33.3); Mean Corpuscular Volume 85.3 fL (83.0-100.0); Mean Platelet Volume 8.9 fL (9.4-12.4); Monocytes # 1.2 K/mcL (0.0-1.3); Monocytes % 12.5 %; Neutrophils # 6.4 K/mcL (1.6-8.9); Platelet Count 450 K/mcL (140-400); Red Blood Count 3.27 M/mcL (3.82-4.97); Segmented Neutrophils % 65.3 %; White Blood Count 9.8 K/mcL (4.3-11.1)
[2022-04-06] MEDS: *HR* Enoxaparin 40 MG/0.4 ML SYRINGE SQ SCH (05:42)
[2022-04-06 05:48] LABS: BUN/Creatinine Ratio 21 (6-26); Blood Urea Nitrogen 18 mg/dL (8-23); Calcium 8.3 mg/dL (8.6-10.3); Carbon Dioxide 28 mEq/L (23-29); Chloride 93 mEq/L (98-107); Glucose 133 mg/dL (70-105); Magnesium 1.7 mg/dL (1.6-2.6); Osmolality,Calculated 266 (280-300); Potassium 3.8 mEq/L (3.5-5.1); Sodium 126 mEq/L (136-145); eGFR For African Americans > 60 (> 60); eGFR For Non-African Americans > 60 (> 60)
[2022-04-06] MEDS ORDERED: Furosemide 20 MG TABLET PO STA (07:38)
[2022-04-06] MEDS: Aspirin Enteric Coated 81 MG Tablet PO SCH (08:36)
[2022-04-06] MEDS: lisinopriL 10 MG TABLET PO SCH (08:36)
[2022-04-06] MEDS: Multivit/Ca/Min/Fe/FA 1 TAB TABLET PO SCH (08:36)
[2022-04-06] MEDS: Isosorbide MONOnitrate (24 HR) 30 MG TAB.ER.24H PO SCH (08:36)
[2022-04-06] MEDS: polyethylene glycoL 3350 17 GM POWD.PACK PO SCH (08:37)
[2022-04-06] MEDS: Budesonide/Formoterol 160/4.5 1 PUFF INH IH SCH ×2 (10:39→21:19)
[2022-04-06] MEDS ORDERED: 0.9 % Sodium Chloride 500 ML IVC PRN ×2 (18:00→18:21)
[2022-04-06] MEDS: Acetaminophen 325 MG TABLET PO PRN (18:26)
[2022-04-06] MEDS: Cefdinir 300 MG CAPSULE PO SCH (18:27)
[2022-04-06] MEDS: Melatonin 3 MG TABLET PO PRN (21:32)
[2022-04-07 04:54] LABS: Basophils # 0.1 K/mcL (0.0-0.2); Basophils % 0.6 %; Eosinophils # 0.3 K/mcL (0.0-0.6); Eosinophils % 3.3 %; Hematocrit 26.4 % (35.3-44.9); Hemoglobin 8.7 g/dL (11.5-15.4); Immature Granulocytes % 0.7 % (0-4); Lymphocytes # 1.7 K/mcL (0.6-4.6); Lymphocytes % 21.3 %; Mean Corpuscular Hemoglobin 28.4 pg (28.0-33.3); Mean Corpuscular Volume 86.3 fL (83.0-100.0); Mean Platelet Volume 8.6 fL (9.4-12.4); Monocytes # 0.9 K/mcL (0.0-1.3); Monocytes % 11.2 %; Neutrophils # 5.1 K/mcL (1.6-8.9); Platelet Count 394 K/mcL (140-400); Red Blood Count 3.06 M/mcL (3.82-4.97); Red Cell Distribution Width 15.2 % (11.5-14.5); Segmented Neutrophils % 62.9 %; White Blood Count 8.1 K/mcL (4.3-11.1)
[2022-04-07 05:09] LABS: BUN/Creatinine Ratio 25 (6-26); Blood Urea Nitrogen 18 mg/dL (8-23); Calcium 8.4 mg/dL (8.6-10.3); Carbon Dioxide 26 mEq/L (23-29); Chloride 93 mEq/L (98-107); Glucose 113 mg/dL (70-105); Osmolality,Calculated 265 (280-300); Potassium 4.3 mEq/L (3.5-5.1); Sodium 126 mEq/L (136-145); eGFR For African Americans > 60 (> 60); eGFR For Non-African Americans > 60 (> 60)
[2022-04-07] MEDS: *HR* Enoxaparin 40 MG/0.4 ML SYRINGE SQ SCH (06:27)
[2022-04-07] MEDS: Cefdinir 300 MG CAPSULE PO SCH ×2 (09:13→20:44)
[2022-04-07] MEDS: Isosorbide MONOnitrate (24 HR) 30 MG TAB.ER.24H PO SCH (09:13)
[2022-04-07] MEDS: lisinopriL 10 MG TABLET PO SCH (09:13)
[2022-04-07] MEDS: Aspirin Enteric Coated 81 MG Tablet PO SCH (09:13)
[2022-04-07] MEDS: Multivit/Ca/Min/Fe/FA 1 TAB TABLET PO SCH (09:13)
[2022-04-07] MEDS: Furosemide 20 MG TABLET PO SCH (09:13)
[2022-04-07] MEDS: polyethylene glycoL 3350 17 GM POWD.PACK PO SCH (09:14)
[2022-04-07] MEDS: Acetaminophen 325 MG TABLET PO PRN ×2 (09:15→20:45)
[2022-04-07] MEDS: Budesonide/Formoterol 160/4.5 1 PUFF INH IH SCH ×2 (10:28→19:48)
[2022-04-07] MEDS: Sennosides/Docusate Sodium TABLET PO SCH (10:57)
[2022-04-07] MEDS: Melatonin 3 MG TABLET PO PRN (20:45)
[2022-04-08 05:25] LABS: Basophils # 0.1 K/mcL (0.0-0.2); Basophils % 0.9 %; Eosinophils # 0.4 K/mcL (0.0-0.6); Eosinophils % 4.9 %; Hematocrit 27.4 % (35.3-44.9); Immature Granulocytes % 1.1 % (0-4); Lymphocytes # 1.6 K/mcL (0.6-4.6); Lymphocytes % 20.9 %; Mean Corpuscular HGB Conc 32.8 g/dL (31.6-35.5); Mean Corpuscular Hemoglobin 28.6 pg (28.0-33.3); Monocytes # 0.7 K/mcL (0.0-1.3); Monocytes % 9.6 %; Neutrophils # 4.7 K/mcL (1.6-8.9); Platelet Count 437 K/mcL (140-400); Red Blood Count 3.15 M/mcL (3.82-4.97); Red Cell Distribution Width 15.2 % (11.5-14.5); Segmented Neutrophils % 62.6 %; White Blood Count 7.5 K/mcL (4.3-11.1)
[2022-04-08 05:43] LABS: BUN/Creatinine Ratio 27 (6-26); Blood Urea Nitrogen 18 mg/dL (8-23); Calcium 8.7 mg/dL (8.6-10.3); Carbon Dioxide 29 mEq/L (23-29); Chloride 92 mEq/L (98-107); Glucose 105 mg/dL (70-105); Osmolality,Calculated 264 (280-300); Potassium 4.5 mEq/L (3.5-5.1); Sodium 126 mEq/L (136-145); eGFR For African Americans > 60 (> 60); eGFR For Non-African Americans > 60 (> 60)
[2022-04-08] MEDS: *HR* Enoxaparin 40 MG/0.4 ML SYRINGE SQ SCH (05:52)
[2022-04-08] MEDS: Acetaminophen 325 MG TABLET PO PRN ×2 (05:59→21:34)
[2022-04-08] MEDS: Budesonide/Formoterol 160/4.5 1 PUFF INH IH SCH ×2 (07:45→19:56)
[2022-04-08] MEDS: Aspirin Enteric Coated 81 MG Tablet PO SCH (08:28)
[2022-04-08] MEDS: Isosorbide MONOnitrate (24 HR) 30 MG TAB.ER.24H PO SCH (08:29)
[2022-04-08] MEDS: lisinopriL 10 MG TABLET PO SCH (08:29)
[2022-04-08] MEDS: Sennosides/Docusate Sodium TABLET PO SCH (08:29)
[2022-04-08] MEDS: Cefdinir 300 MG CAPSULE PO SCH ×2 (08:29→21:35)
[2022-04-08] MEDS: Multivit/Ca/Min/Fe/FA 1 TAB TABLET PO SCH (08:29)
[2022-04-08] MEDS: Furosemide 20 MG TABLET PO SCH (08:29)
[2022-04-08] MEDS: polyethylene glycoL 3350 17 GM POWD.PACK PO SCH (08:29)
[2022-04-08] MEDS: Melatonin 3 MG TABLET PO PRN (21:35)
[2022-04-09] MEDS: Acetaminophen 325 MG TABLET PO PRN ×2 (05:36→21:27)
[2022-04-09] MEDS: *HR* Enoxaparin 40 MG/0.4 ML SYRINGE SQ SCH (05:37)
[2022-04-09] MEDS: Sennosides/Docusate Sodium TABLET PO SCH (09:00)
[2022-04-09] MEDS: Aspirin Enteric Coated 81 MG Tablet PO SCH (09:00)
[2022-04-09] MEDS: Furosemide 20 MG TABLET PO SCH (09:00)
[2022-04-09] MEDS: lisinopriL 10 MG TABLET PO SCH (09:00)
[2022-04-09] MEDS: Cefdinir 300 MG CAPSULE PO SCH ×2 (09:00→21:25)
[2022-04-09] MEDS: Isosorbide MONOnitrate (24 HR) 30 MG TAB.ER.24H PO SCH (09:00)
[2022-04-09] MEDS: Multivit/Ca/Min/Fe/FA 1 TAB TABLET PO SCH (09:00)
[2022-04-09] MEDS: polyethylene glycoL 3350 17 GM POWD.PACK PO SCH (09:00)
[2022-04-09] MEDS: Budesonide/Formoterol 160/4.5 1 PUFF INH IH SCH ×2 (10:27→19:59)
[2022-04-09] MEDS: Melatonin 3 MG TABLET PO PRN (21:27)
[2022-04-10 04:50] LABS: Basophils # 0.1 K/mcL (0.0-0.2); Basophils % 0.9 %; Eosinophils # 0.4 K/mcL (0.0-0.6); Eosinophils % 5.1 %; Hematocrit 26.2 % (35.3-44.9); Hemoglobin 8.8 g/dL (11.5-15.4); Immature Granulocytes % 0.8 % (0-4); Lymphocytes # 2.3 K/mcL (0.6-4.6); Lymphocytes % 26.6 %; Mean Corpuscular HGB Conc 33.6 g/dL (31.6-35.5); Mean Corpuscular Hemoglobin 28.7 pg (28.0-33.3); Mean Corpuscular Volume 85.3 fL (83.0-100.0); Monocytes % 11.1 %; Neutrophils # 4.8 K/mcL (1.6-8.9); Platelet Count 453 K/mcL (140-400); Red Blood Count 3.07 M/mcL (3.82-4.97); Red Cell Distribution Width 15.5 % (11.5-14.5); Segmented Neutrophils % 55.5 %; White Blood Count 8.6 K/mcL (4.3-11.1)
[2022-04-10 05:03] LABS: BUN/Creatinine Ratio 24 (6-26); Blood Urea Nitrogen 18 mg/dL (8-23); Calcium 8.8 mg/dL (8.6-10.3); Carbon Dioxide 30 mEq/L (23-29); Chloride 91 mEq/L (98-107); Glucose 106 mg/dL (70-105); Osmolality,Calculated 262 (280-300); Potassium 4.5 mEq/L (3.5-5.1); Sodium 125 mEq/L (136-145); eGFR For African Americans > 60 (> 60); eGFR For Non-African Americans > 60 (> 60)
[2022-04-10] MEDS: *HR* Enoxaparin 40 MG/0.4 ML SYRINGE SQ SCH (05:23)
[2022-04-10] MEDS: polyethylene glycoL 3350 17 GM POWD.PACK PO SCH (08:45)
[2022-04-10] MEDS: Multivit/Ca/Min/Fe/FA 1 TAB TABLET PO SCH (08:46)
[2022-04-10] MEDS: Cefdinir 300 MG CAPSULE PO SCH ×2 (08:46→20:57)
[2022-04-10] MEDS: Furosemide 20 MG TABLET PO SCH (08:46)
[2022-04-10] MEDS: lisinopriL 10 MG TABLET PO SCH (08:46)
[2022-04-10] MEDS: Sennosides/Docusate Sodium TABLET PO SCH (08:46)
[2022-04-10] MEDS: Aspirin Enteric Coated 81 MG Tablet PO SCH (08:46)
[2022-04-10] MEDS: Isosorbide MONOnitrate (24 HR) 30 MG TAB.ER.24H PO SCH (08:46)
[2022-04-10] MEDS: Budesonide/Formoterol 160/4.5 1 PUFF INH IH SCH ×2 (09:26→20:21)
[2022-04-10] MEDS: Acetaminophen 325 MG TABLET PO PRN ×2 (15:54→20:56)
[2022-04-11] MEDS: *HR* Enoxaparin 40 MG/0.4 ML SYRINGE SQ SCH (04:31)
[2022-04-11] MEDS: Cefdinir 300 MG CAPSULE PO SCH (07:40)
[2022-04-11] MEDS: Aspirin Enteric Coated 81 MG Tablet PO SCH (07:41)
[2022-04-11] MEDS: Sennosides/Docusate Sodium TABLET PO SCH (07:41)
[2022-04-11] MEDS: Multivit/Ca/Min/Fe/FA 1 TAB TABLET PO SCH (07:41)
[2022-04-11] MEDS: Isosorbide MONOnitrate (24 HR) 30 MG TAB.ER.24H PO SCH (07:41)
[2022-04-11] MEDS: Furosemide 20 MG TABLET PO SCH (07:41)
[2022-04-11] MEDS: lisinopriL 10 MG TABLET PO SCH (07:41)
[2022-04-11] MEDS: polyethylene glycoL 3350 17 GM POWD.PACK PO SCH (07:42)
[2022-04-11] MEDS: Budesonide/Formoterol 160/4.5 1 PUFF INH IH SCH (10:02)
[2022-04-11 11:36] VITALS: BP 120/72; PULSE 65; RESP 14; TEMP 98.7; O2SAT 94
== END 2022-04-11 11:40 ==
LOC: EMEROOGRE 13:20 → INPGRE 15:46 → INTOOBSV 15:46 → INPGRE 16:25
PROVIDERS: ADMIT Internal Medicine; ATTEND Internal Medicine